=== PATIENT | male | born 1960 | race Caucasian/White ===

== ENCOUNTER 2016-12-08 10:30 | Outpatient (CLI) | payer BC ==
[~2016-12-08] VITALS: Ht 185.4 cm; Wt 122.7 kg
--- NOTE | ~2016-12-08 | HEMODYNAMI ---
PATIENT:DANA RUDOLPH MEDICAL RECORD: [id number] : 60 LOCATION:[facility] ADMISSION DATE: 12/08/16 Generatedon:12/08/201613:23 Patient name: DANA RUDOLPH Patient #: [id number] SSN: [id number] : 1960 Date of study: 12/08/2016 Page: Of Hemodynamic Procedure Report Patient Data Patient Demographics Procedure consent was obtained First Name: DANA Gender: Male Last Name: RONNI : 1960 Patient #: [id number] Age: 56 year(s) Race: SSN: [id number] Additional ID: [id number] Contact details [address]: [address] [place] [address] [place] State: [place] City: [place] Zip code: [address] Past Medical History Allergies: No known allergies Admission Admission Data Admission Date: 12/08/2016 Admission Time: 10:30 Arrival Date: 12/08/2016 Arrival Time: 0:00 Admit Source: Other Insurance Payor: Private health insurance Height (in.): 72 BSA: 2.4 (m2) Height (cm.): 182.88 BMI: 35.8 (kg/m2) Weight (lbs.): 264 Weight (kg.): 119.75 Lab Results Lab Result Date: 12/08/2016 Lab Result Time: 0:00 Biochemistry Name Units Result Min Max BUN mg/dl 12 --(-*--)-- 7 18 Creatinine mg/dl 0.7 --(*---)-- 0.6 1.3 CBC Name Units Result Min Max Hemoglobin g/dl 13.5 --(*---)-- 13.5 17.5 Procedure Procedure Types Cath Procedure Diagnostic Procedure [facility] w/[facility] Procedure Description Procedure Date Procedure Date: 12/08/2016 Procedure Start Time: 13:10 Procedure End Time: 13:21 Procedure Staff Name Function Berny Zepeda MD Performing Physician Ana Lilia Cross Muñoz RN Nurse Lucía Jackson RT Monitor Procedure Data Cath Procedure Fluoroscopy Diagnostic fluoroscopy Total fluoroscopy Time: 1.7 time: 1.7 min min Diagnostic fluoroscopy Total fluoroscopy dose: 491 dose: 491 mGy mGy Contrast Material Contrast Material Type Amount (ml) Isovue 370 47 Entry Location Entry Primary Successful Side Size Upsize Upsize Entry Closure Gaspar ccessful Closure Location (Fr) 1 (Fr) 2 (Fr) Remarks Device Remarks Radial Right 6 Fr Mechanical artery Short Compression Estimated blood loss: 5 ml Diagnostic catheters Device Type Used For End Catheter Placement Terumo 5Fr Jorge Luis 110cm Multi-vessel catheter Angiography Procedure Complications No complications Procedure Medications Medication Administration Route Dosage Oxygen NC 2 l/min Benadryl I.V. 50 mg Lidocaine 2% added to field 20 Heparin Flush Bag added to field 2 bags (1000units/500ml NS) 0.9% NaCl I.V. 100 ml/hr Versed I.V. 1 mg Fentanyl I.V. 50 mcg Versed I.V. 1 mg Fentanyl I.V. 50 mcg Radial Cocktail I.A. 1 syringe (Verapomil 2mg/Nitro 400mcg/Heparin 1500units) Hemodynamics Rest BSA: 2.4 (m2) HGB: 13.5 (g/dl) O2 Consumption: Estimated: 301.89 (ml/min) O2 Con sumption indexed: Estimated:125.79 (ml/min/m) Heart Rate: 90 (bpm) Pressure Samples Time Site Value (mmHg) Purpose Heart Use Rate(bpm) 13:15 LV 161/-3,22 Snapshot 93 13:15 AO 125/80(98) Pullback 94 13:15 LV 153/-4,15 Pullback 94 Gradients Valve Time Site 1 Site 2 Mean SEP/DFP Peak To Heart Use (mmHg) (sec/min) Peak Rate (mmHg) (bpm) Aortic 13:15 LV AO 14 22 28 94 153/-4,15 125/80(98) Calculations Valve P-P Mean Valve Index Valve Source Name Gradient Area Flow (cm2) Aortic 28 14 28 14 Snapshots Pre Cath Intra NCS Post Cath Vital Signs Time Heart Resp SPO2 etCO2 [id number] NIBP (mmHg) Rhythm Pain Sedation Rate (ipm) (%) (mmHg) (mmHg) Status Level (bpm) 12:50:02 86 20 100 0 0 143/83(115) NSR 0 (11) 10(A) , No pain 12:54:18 76 18 100 0 0 141/87(114) NSR 0 (11) 10(A) , No pain 12:58:36 70 16 98 0 0 131/85(99) NSR 0 (11) 10(A) , No pain 13:02:54 73 16 96 0 0 129/73(98) NSR 0 (11) 10(A) , No pain 13:07:12 68 15 96 0 0 119/71(104) NSR 0 (11) 10(A) , No pain 13:11:24 72 16 97 0 0 128/76(92) NSR 0 (11) 9(A) , No pain 13:15:34 82 16 97 0 0 114/74(97) NSR 0 (11) 9(A) , No pain 13:19:44 89 17 98 0 0 124/77(92) NSR 0 (11) 10(A) , No pain Medications Time Medication Route Dose Verified Delivered Reason Notes Effectiveness by by 12:52:09 Oxygen NC 2 l/min Berny Buffie used for Duane Muñoz RN procedure 12:52:18 Benadryl I.V. 50 mg Berny Buffie used for Duane Muñoz RN procedure 12:52:34 Lidocaine 2% added 20ml Berny Berny for local to vial Duane Zepeda MD anesthetic field 12:52:44 Heparin Flush added 2 bags Berny Berny used for Bag to Duane Zepeda MD procedure (1000units/500ml field NS) 12:52:53 0.9% NaCl I.V. 100 Berny Buffie Per ml/hr Duane Muñoz RN physician 13:06:41 Versed I.V. 1 mg Berny Buffie for sedation Duane Muñoz RN 13:06:48 Fentanyl I.V. 50 mcg Berny Buffie for sedation Duane Muñoz RN 13:11:29 Versed I.V. 1 mg Berny Buffie for sedation Duane Muñoz RN 13:11:32 Fentanyl I.V. 50 mcg Berny Buffie for sedation Duane Muñoz RN 13:13:51 Radial Cocktail I.A. 1 Berny Berny for (Verapomil syringe Duane Zepeda MD vasodilation 2mg/Nitro 400mcg/Heparin 1500units) Procedure Log Time Note 12::32 Tay Muñoz RN sent for patient. Start room use. :: Informed consent obtained and on chart :: Diagnostic Cath Status : Elective 12::25 Admit Source: Other 12::45 Arrival Date: 12/08/2016 12:00:00 AM 12:33:35 Patient Height : 72 inches 12::40 Patient Weight : 264 lbs 12:34:28 Insurance Payor : Private health insurance :: Lab Result : Hemoglobin 13.5 g/dl 12:: Lab Result : BUN 12 mg/dl 12:: Lab Result : Creatinine 0.7 mg/dl ::40 Time tracking: Regular hours 12::44 Plan of Care:Hemodynamics will remain stable., Cardiac rhythm will remain stable., Comfort level will be maintained., Respiratory function will remain adequate., Patient/ family verbilizes understanding of procedure., Procedure tolerated without complication., Recovers from procedure without complications.. 12:40:16 Patient received from Outpatients to CCL 1 Alert and oriented. Tansferred to table in Supine position. 12:40:18 Warm blankets applied, and samantha hugger turned on for patient comfort. 12:40:19 Correct patient and procedure confirmed by team. 12:40:21 ECG and BP/O2 sat monitors applied to patient. 12:48:53 Vital chart was started 12:48:54 Baseline sample Acquired. 12:48:57 Rhythm: sinus rhythm 12:48:59 Full Disclosure recording started 12:51:03 Pre-procedure instructions explained to patient. 12:52:09 Oxygen 2 l/min NC was given by Tay Muñoz RN; used for procedure; 12:52:18 Benadryl 50 mg I.V. was given by Tay Muñoz RN; used for procedure; 12:52:34 Lidocaine 2% 20ml vial added to field was given by Breny Zepeda MD; for local anesthetic; 12:52:44 Heparin Flush Bag (1000units/500ml NS) 2 bags added to field was given by Berny Zepeda MD; used for procedure; 12:52:53 0.9% NaCl 100 ml/hr I.V. was given by Tay Muñoz RN; Per physician; 12:53:00 Pre-op teaching completed and patient verbalized understanding. 12:53:11 Family in waiting room. 12:53:14 Patient NPO since Midnight. 12:55:44 Patient allergic to No known allergies 12:55:47 Is the patient allergic to Iodine/contrast media? No. 12:55:51 Is patient on blood thinner?No 12:55:54 Patient diabetic? Yes. 12:55:55 If diabetic: On Metformin? Yes 12:55:59 If on Metformin: Last Dose? 12/05/2016 12:56:01 ----Pre-sedation anethsthesia assessment.---- 12:56:04 Previous problem with sedation/anesthesia? No ? 12:56:06 Snore? Yes 12:56:10 Sleep apnea? Yes 12:56:11 Deviated septum? No 12:56:17 Opens mouth fully? Yes 12:56:19 Sticks out tongue? Yes 12:56:21 Airway obstruction? No ? 12:56:23 Dentures? No ? 12:56:26 Pre procedure: right dorsailis pedis pulse 2+ Normal; easily identifiable; not easily obliterated 12:56:29 Modified Jason's test Ulnar < 7 seconds 12:56:32 Patient pain scale 0/10 ?. 12:57:00 IV patent on arrival in left hand with 0.9% NaCl at 10ml/hr. 12:57:04 Lab results completed and on chart. 12:57:07 Right Radial & Right Groin area was prepped with chlora-prep and draped in sterile fashion 12:57:09 Alarms reviewed by R. N. 12:57:09 Sharps counted by scrub and verified by R.N. 12:58:04 Baseline sample Acquired. 13:03:49 Physician arrived 13:03:50 --------ALL STOP TIME OUT------ 13:03:50 Final Timeout: patient, procedure, and site verified with staff and physician. All members of the team are in agreement. 13:03:56 Right Radial & Right Groin site verified by team. 13:04:00 Physical assessment completed. ASA score P 2 - A patient with mild systemic disease as per Berny Zepeda MD. 13:04:03 Sedation plan: IV Moderate Sedation Versed, Fentanyl 13:04:25 Use device set Radial Dx 13:04:26 Acist Syringe opened to sterile field. 13:04:26 Cardinal Cath Pack opened to sterile field. 13:04:27 Bag Decanter opened to sterile field. 13:04:27 Terumo 6Fr Slender Glidesheath opened to sterile field. 13:04:28 St Miguelito 260cm J .035 wire opened to sterile field. 13:04:29 Acist Hand Control opened to sterile field. 13:04:30 Acist Manifold opened to sterile field. 13:04:31 Tegaderm 4 x 4 opened to sterile field. 13:04:45 Procedure started. 13:06:41 Versed 1 mg I.V. was given by Tay Muñoz RN; for sedation; 13:06:48 Fentanyl 50 mcg I.V. was given by Tay Muñoz RN; for sedation; 13:07:27 Zero performed for pressure channel P1 13:08:41 Cook 21G 4cm Radial Needle opened to sterile field. 13:10:56 Local anesthetic to right radial artery with Lidocaine 2% by Berny Zepeda MD.INITIAL ACCESS ONLY 13:11:29 Versed 1 mg I.V. was given by Tay Muñoz RN; for sedation; 13:11:32 Fentanyl 50 mcg I.V. was given by Tay Muñoz RN; for sedation; 13:12:49 A 6 Fr Short sheath was inserted into the Right Radial artery 13:13:36 A Terumo 5Fr Jorge Luis 110cm catheter was advanced over the wire and used for Multi-vessel Angiography. 13:13:51 Radial Cocktail (Verapomil 2mg/Nitro 400mcg/Heparin 1500units) 1 syringe I.A. was given by Berny Zepeda MD; for vasodilation; 13:15:09 LV hemodynamics recorded. 13:15:11 LV gram done using CAMARENA 13:15:13 Injector settings: Ml/sec: 5, Volume: 15, 13:15:58 EF : 50 % 13:17:22 LCA angiography performed. 13:17:26 Injector settings: Ml/sec: 3, Volume: 6, 13:18:32 RCA angiography performed. 13:18:35 Injector settings: Ml/sec: 3, Volume: 6, 13:18:39 Catheter removed. 13:19:11 Terumo TR Band Large opened to sterile field. 13:19:58 Sheath removed intact; hemostasis achieved with Mechanical Compression to the Right Radial artery. 13:20:00 Procedure ended.(Physican Out) 13:20:26 Fluoroscopy time 01.70 minutes. 13:20:32 Fluoroscopy dose: 491 mGy 13:20:32 Flurop Dose total: 491 13:20:37 Contrast amount:Isovue 370 47ml. 13:20:38 Sharps counted by scrub and verified by R.N. 13:20:39 Insertion/operative site no bleeding no hematoma. 13:20:45 TR band inflated with 10cc of air. 13:20:52 Post procedure rhythm: unchanged. 13:20:55 Estimated blood loss: 5 ml 13:20:57 Post procedure instruction explained to patient.Patient verbalizes understanding. 13:20:57 Patient needs reinforcement of post procedure teaching. 13:21:06 Procedure and supply charges have been captured, reviewed, submitted and are correct. 13:21:10 Procedure Complication : No complications 13:21:13 Vital chart was stopped 13:21:14 See physician's report for complete and final results. 13:21:18 Report given to Post Procedure Room. 13:21:21 Patient transfered to Post Procedure Room with Stretcher. 13:21:23 Procedure ended. 13:21:23 Full Disclosure recording stopped 13:21:28 End room use (Document Last) Device Usage Item Name Manufacture Quantity Catalog Hospital Part Current Minimal Lot# / Number Charge Number Stock Stock Serial# Code Acist Acist 1 95322 104890 247291 069774 20 Syringe [employer] Cardinal Cardinal 1 [id number] 142586 86459 812008 5 Cath Pack Health Bag Microtek 1 390269 66081 014763 5 DecDoubleRecall. Terumo 6Fr Terumo 1 [id number] 789422 969888 729875 [address] Miguelito 1 854033 694752 305408 979734 30 260cm J .035 wire Acist Hand Acist 1 09023 950531 309168 496658 5 Control [employer] Acist Acist 1 17893 501407 500045 750483 5 Manifold [employer] Inc Tegaderm 4 3M 1 1626W 044935 786207 945963 5 x 4 Cook 21G [facility] 1 [id number] 683560 116421 5 4cm Radial Needle Terumo 5Fr Terumo 1 67-8595 111532 070380 551213 5 Jorge Luis 110cm catheter Terumo TR Terumo 1 [id number] 691043 647803 40 Band Large Signature Audit [place] Stage Time Signature Unsigned Intra-Procedure 12/08/2016 Lucía Jackson 1:23:09 PM RT(R) Signatures Monitor : Lucía Jackson RT Signature : Date : Time : [facility] [address] [place] [address]
[2016-12-08] MEDS ORDERED: GLUCOPHAGE1000 MG PO (10:54)
[2016-12-08] MEDS ORDERED: ZOCOR40 MG PO (10:55)
[2016-12-08] MEDS ORDERED: COZAAR100 MG PO (10:55)
[2016-12-08] MEDS ORDERED: AMBIEN10 MG PO (10:56)
[2016-12-08] MEDS ORDERED: ACTOS30 MG PO (10:56)
[2016-12-08 11:02] VITALS: BP 138/90; Ht 185.4 cm; Wt 122.7 kg
[2016-12-08 11:22] LABS: BASOPHILS 0.4 % (0.0-2.0); EOSINOPHILS 1.7 % (0-7); HEMATOCRIT 41.3 % (42.0-54.0); HEMOGLOBIN 13.5 g/dL (13.5-17.5); LYMPHOCYTES 43.4 % (15-50); MCH 30.6 pg (26.0-34.0); MCHC 32.7 g/dL (31.0-37.0); MCV 93.7 fL (80.0-100.0); MEAN PLATELET VOLUME 10.5 fL (7.4-10.4); NEUTROPHILS 44.5 % (40-80); PLATELET COUNT 300 10x3/uL (130-400); RBC 4.41 10x6/uL (4.20-6.10); RDW 13.6 % (11.5-14.5); WBC 5.2 10x3/uL (4.8-10.8)
[2016-12-08 11:28] LABS: CALC OSMOLALITY 278 mosm/kg (275-300); CALCIUM 9.6 mg/dL (8.5-10.1); CARBON DIOXIDE 29.4 mmol/L (21.0-32.0); CHLORIDE - SERUM 103 mmol/L (98-107); CREATININE - SERUM 0.7 mg/dL (0.6-1.3); GLUCOSE 119 mg/dL (74-106); SODIUM 139 mmol/L (136-145); UREA NITROGEN 12 mg/dL (7-18); eGFR NON AFRICAN AMERICAN > 90 mL/min (90-120)
--- NOTE | 2016-12-08 13:45 | NUR ---
1345 TR BAND TO R/WRIST CDI NO BLEEDING NO HEMATOMA NOTED. CHEST PAIN IS DENIED 1615 NO DISTRESS NOTED REPOSITIONED TO SITTING WITH HOB UP 30 DEGREES TR BAND TO R/WRIST CDI NO BLEEDING NO HEMATOMA NOTED.
--- NOTE | 2016-12-08 14:33 | NUR ---
VSS WITH CHEST PAIN DENIED TR BAND TO R/WRIST CDI NO BLEEDING NO HEMATOMA NOTED FAMILY AT SIDE
--- NOTE | 2016-12-08 15:30 | NUR ---
4 CC AIR REMOVED FROM TR BAND WITH NO BLEEDING NO HEMATOMA NOTED.CHEST PAIN DENIED PIV REMOVED FROM LEFT ARM WITH DRESSING APPLIED PATIENT UP TO GET DRESSED FOR DISCHARGE
--- NOTE | 2016-12-08 15:54 | NUR ---
TR BAND REMOVED WITH NO BLEEDING NO HEMATOMA NOTED. VERBAL AND WRITTEN DISCHARGE GONE OVER WITH PATIENT AND BOTH VERBALIZED UNDERSTANDING. LEFT VIA WC TO CAR FOR TRANSPRORT HOME CHEST PAIN DENIED
--- NOTE | 2016-12-09 13:16 | OP ---
PATIENT NAME: DANA RUDOLPH MEDICAL RECORD: [id number] :60 LOCATION:[facility] ADMISSION DATE: SURGEON: VANESA FARIAS M.D. DATE OF OPERATION: 12/08/2016 REFERRING PHYSICIAN: Dr. Stan Garcia. PROCEDURES PERFORMED: 1. Selective coronary angiography. 2. Left heart catheterization with ventriculogram. INDICATION: A 56-year-old gentleman presents with abnormal HeartSaver CT and abnormal Cardiolite stress Test. EQUIPMENT USED: A 5-Gibraltarian Jorge Luis catheter. TECHNIQUE: A 5-Gibraltarian sheath was inserted in retrograde fashion in the right radial artery. Next, selective coronary angiography was performed in standard views using 5-Gibraltarian Jorge Luis catheter. Left heart catheterization was performed using the Jorge Luis catheter as well. CORONARY ANATOMY: 1. Left main: Left main trunk is large in caliber. It gives rise to the LAD and circumflex. It is widely patent. 2. LAD: This is a large caliber vessel extending to the apex. The proximal vessel has some mild calcification, but the vessel overall is smooth-walled and angiographically normal. 3. Circumflex: This vessel is large in caliber. It supplies the lateral branch in mid segment. The circumflex and lateral branch are smooth-walled and angiographically normal. 4. Right coronary: This vessel is large in caliber and dominant. The proximal vessel has some mild calcification, but again, it is widely patent with no evidence of stenosis. Mid distal vessel is of good caliber and is angiographically normal. 5. Left ventricle: Left ventricle is normal in size and function. No wall motion abnormalities are noted. Ejection fraction is 50%. IMPRESSION: 1. Widely patent coronary arteries without evidence of any significant stenosis. 2. Normal left ventricular function. RECOMMENDATIONS: I suspect the Cardiolite stress test is false positive. We will continue with medical management. TRANSINT:[id number] Voice Confirmation ID: [id number] DOCUMENT ID: [id number] OPERATIVE REPORT [id number] DANA RUDOLPHVANESA M.D. at 1316 CC: [id number] DICTATION DATE: 12/08/16 1324 TECHNOLOGY ARCHITECT: 12/08/16 1417 DEP CLI 12/08/16 [id number] [place] [address]
--- NOTE | 2016-12-09 13:16 | HP ---
PATIENT: DANA FRIEDMAN MEDICAL RECORD: [id number] ACCOUNT: [id number] LOCATION:[facility] : 60 ADMISSION DATE: 12/08/16 HISTORY AND PHYSICAL EXAMINATION HISTORY OF PRESENT ILLNESS: Mr. Friedman is a 56-year-old gentleman recently seen in clinic. He recently had a HeartSaver CT performed, which revealed an elevated score. He underwent cardiac stress testing. This revealed inferior and apical ischemia. He subsequently referred for cardiac catheterization. PAST MEDICAL HISTORY: 1. Hyperlipidemia. 2. Hypertension. 3. Diabetes mellitus. MEDICATIONS: Zocor 40 mg daily, metformin 1000 mg daily, and losartan 50 mg daily. HABITS: He does not smoke tobacco. FAMILY HISTORY: His mother had coronary artery disease. PHYSICAL EXAMINATION: VITAL SIGNS: Blood pressure 126/82, pulse 86. NECK: No JVD or bruit. CHEST: Clear to auscultation bilaterally, no wheezes or rales. CARDIAC: Regular rate and rhythm. No S4 or S3. ABDOMEN: Soft, nontender, no masses, no bruits. EXTREMITIES: Pulses 2+ bilaterally. No edema. IMPRESSION: Coronary artery disease. His stress test has been positive for inferior and apical ischemia. He had an elevated calcium score on his recent HeartSaver CT. RECOMMENDATIONS: Proceed with cardiac catheterization. TRANSINT:[id number] Voice Confirmation ID: [id number] DOCUMENT ID: [id number] VANESA FARIAS M.D. at 1316 CC: [id number] DICTATION DATE: 12/08/16 1322 TOP LIFT COMPRESSER: 12/08/16 1408 [facility] CLI 12/08/16 [place] [id number]
== END 2016-12-08 15:57 | disposition home or self-care (01) ==
LOC: D.CATH 10:30
PROVIDERS: Internal Medicine Cardiovascular Disease
DX: R94.39 Abnormal result of other cardiovascular function study (principal)